=== PATIENT | male | born 1935 ===

== ENCOUNTER 2020-01-01 10:36 | Inpatient (IN) | payer OTHER ==
[~2020-01-01] VITALS: Ht 170.2 cm; Wt 113.4 kg
[2020-01-11] MEDS ORDERED: INTESTINEX680 M1 PO (09:28)
[2020-01-11] MEDS ORDERED: LORATADINE10 MG PO (09:28)
[2020-01-11] MEDS ORDERED: TRAMADOL HCL50 MG PO (09:28)
[2020-01-11] MEDS ORDERED: LEVOTHYROXINE25 MCG PO (09:28)
[2020-01-11] MEDS ORDERED: SIMVASTATIN20 MG PO (09:28)
[2020-01-11] MEDS ORDERED: FUROSEMIDE40 MG PO (09:28)
[2020-01-11] MEDS ORDERED: BUSPIRONE HCL5 MG PO (09:28)
[2020-01-11] MEDS ORDERED: Neurin-Sl Tablet Sl SL (09:28)
[2020-01-11] MEDS ORDERED: TAMS0.4C PO (09:28)
[2020-01-11] MEDS ORDERED: PYRIDOXINE HCL100 MG PO (09:28)
[2020-01-11] MEDS ORDERED: RESTORIL15 MG PO (09:28)
[2020-01-11] MEDS ORDERED: ATACAND16 MG PO (09:28)
[2020-01-11] MEDS ORDERED: FLONASE16 GM NASAL (09:28)
[2020-01-11] MEDS ORDERED: ISOSORBIDE DINI20 MG PO (09:28)
[2020-01-11] MEDS ORDERED: FAMOTIDINE20 MG PO (09:28)
== END 2020-01-11 21:41 | disposition home or self-care (01) | DRG 394 ==
LOC: ER 10:36 → SURG 19:46 → SEC-K 19:46 → SURG 01-02 00:17 → SURH 01-07 13:43
PROVIDERS: ADMIT Colon & Rectal Surgery; ATTEND Colon & Rectal Surgery
PROC: 4A033R1 Measurement of Arterial Saturation, Peripheral, Percutaneous Approach (ICD-10-PCS; 2020-01-01)
PROC: 3E0F7SF Introduction of Other Gas into Respiratory Tract, Via Natural or Artificial Opening (ICD-10-PCS; 2020-01-04)
PROC: 8E0ZXY6 Isolation (ICD-10-PCS; principal; 2020-01-08)
PROC: BW20YZZ Computerized Tomography (CT Scan) of Abdomen using Other Contrast (ICD-10-PCS; 2020-01-09)
DX: K61.1 Rectal abscess (principal); B18.1 Chronic viral hepatitis B without delta-agent; I13.0 Hypertensive heart and chronic kidney disease with heart failure and stage 1 through stage 4 chronic kidney disease, or unspecified chronic kidney disease; I50.9 Heart failure, unspecified; J61 Pneumoconiosis due to asbestos and other mineral fibers; E03.9 Hypothyroidism, unspecified; I50.89 Other heart failure; N18.9 Chronic kidney disease, unspecified; Z79.01 Long term (current) use of anticoagulants; J44.9 Chronic obstructive pulmonary disease, unspecified; B96.20 Unspecified Escherichia coli [E. coli] as the cause of diseases classified elsewhere; Z74.01 Bed confinement status

== ENCOUNTER 2020-01-13 15:55 | Emergency (ER) | payer OTHER ==
[~2020-01-13] VITALS: Ht 175.3 cm; Wt 99.8 kg
[~2020-01-13 15:55] MED LIST: ATACAND16 MG PO; BUSPIRONE HCL5 MG PO; FAMOTIDINE20 MG PO; FLONASE16 GM NASAL; FUROSEMIDE40 MG PO; INTESTINEX680 M1 PO; ISOSORBIDE DINI20 MG PO; LEVOTHYROXINE25 MCG PO; LORATADINE10 MG PO; Neurin-Sl Tablet Sl SL; PYRIDOXINE HCL100 MG PO; RESTORIL15 MG PO; SIMVASTATIN20 MG PO; TAMS0.4C PO; TRAMADOL HCL50 MG PO
== END 2020-01-15 13:45 | disposition home or self-care (01) ==
LOC: ER 15:55
DX: U07.1 COVID-19 (principal); K61.39 Other ischiorectal abscess; B18.1 Chronic viral hepatitis B without delta-agent; I13.0 Hypertensive heart and chronic kidney disease with heart failure and stage 1 through stage 4 chronic kidney disease, or unspecified chronic kidney disease; I50.9 Heart failure, unspecified; N18.9 Chronic kidney disease, unspecified; J61 Pneumoconiosis due to asbestos and other mineral fibers; E03.9 Hypothyroidism, unspecified; E87.6 Hypokalemia; R06.02 Shortness of breath; J43.8 Other emphysema; G47.33 Obstructive sleep apnea (adult) (pediatric); K75.89 Other specified inflammatory liver diseases; K62.89 Other specified diseases of anus and rectum; J84.10 Pulmonary fibrosis, unspecified; N40.0 Benign prostatic hyperplasia without lower urinary tract symptoms; Z72.0 Tobacco use; Z79.4 Long term (current) use of insulin

== ENCOUNTER 2020-01-26 00:37 | Inpatient (IN) | payer OTHER ==
[~2020-01-26] VITALS: Ht 170.2 cm; Wt 56.7 kg
--- NOTE | 2020-01-26 01:15 | NUR ---
SE RECIBE MASCULINO ALERTA Y DESORIENTADO POR DELVIN ESFERAS, EN AMBULANCIA. FAMILIAR REFIERE QUE PACIENTE PRESENTA ABSESOS EN AREA ANAL CON DESCARGAS DE ESCRETA. ADEMAS REFEIRE QUE PRESENTA DIFICULTAD RESPIRATORIA Y DESORIENTACION. REFIERE QUE PACIENTE PRESENTA COVID POSITIVO, LO QUE SE COMPRUEBA EN FATIMAH BUSQUEDA DE LABORATORIOS DEL PACIENTE EN RECORD. SCHWARTZ PATENTE FABIANONANDO ORINA COLOR AMARILLO INTENSO. SE REALIZA EKG. SE PRESENTA A DR. DOMÍNGUEZ.
--- NOTE | 2020-01-26 01:21 | NUR ---
SE RECIBE PTE MASCULINO EN AMBULANCIA [facility],SE COLOCA EN CAMA #3 ICU ER,SE CONECTA A MONITOR CAEDIACO KO Y OXIMETRIA CONTINUA,SE CANALIZA Y COLOCAN 2 H/L PATENTES EN PERIFERAL IZQUIERDA,SE HOLLIE MUESTRAS Y SE ENVIAN A LABOARTORIO,SE NOTIFICA A TERAPIA RESPIRATORIA SOBRE ABG LO CUAL SE REALIZA,SE MANTIENE PTE CON V/M 35%,LO CUAL CAMBIA A 50%,MARITZA LLEGA CON SCHWARTZ,.SE REALIZAN S/V,SE OBSERVA A PTE CON ABDOMEN DISTENDIDO Y WILLIAM,PTE DESORIENTADO Y SE OBSERVAN MULTIPLES MOVIIENTOS INVOLUNTARIOS,PTE CONTESTA AL SER LLAMADO POR BOLES NOMBRE,SE NOTIFICA PTE SE OBSERVA LENGUA RETRAIDA,SE NOTIFICA Y ES REALIZADO CXR PORTABLE,SE MANTINE A PTE EN OBSERVACION POR CAMBIOS.
--- NOTE | 2020-01-26 02:27 | NUR ---
POR ORDEN DE YA QUE FAMILIAR INFORMA PTE ES POSITIVO A COVID 19,MARITZA ORDENA QUE SEA COLOCADO EN SEC K K-2,Y SE ENTRGA A CARL VERONICA.
--- NOTE | 2020-01-26 07:37 | NUR ---
SE RECIBE PTE MASCULINO DE 84 YRS ALERTA CONCIENTE Y TRANQUILO EN CAMA EN LA UNIDAD DE SEC-K COVID. PTE CON IVF PATENTE Y ANA DE EDEMA. SE LE ROCCO S/V LA CUAL SE DOCUEMTA.SE OBSERVA CON .9NSS A 60 ML HR CON CANULA NASAL A PTE AL MOMETO ANA DE DOLOR .SE MANTIENE JOANA ESPERA DE MEDICO CONSULTOR. SE OBSERVA POR CAMBIOS EN BOLES CONDICION.
[2020-01-28] MEDS ORDERED: ALPRAZOLAM1 MG (07:50)
[2020-01-28] MEDS ORDERED: ABANEU-SL TABL1 EACH (07:52)
[2020-02-07] MEDS ORDERED: FAMOTIDINE20 MG PO (13:11)
[2020-02-07] MEDS ORDERED: PYRIDOXINE HCL100 MG PO (13:11)
[2020-02-07] MEDS ORDERED: RESTORIL15 MG PO (13:11)
[2020-02-07] MEDS ORDERED: SIMVASTATIN20 MG PO (13:11)
[2020-02-07] MEDS ORDERED: ATACAND16 MG PO (13:11)
[2020-02-07] MEDS ORDERED: MELATONIN5 M2 PO (13:11)
[2020-02-07] MEDS ORDERED: VITAMIN C500 M1 PO (13:11)
[2020-02-07] MEDS ORDERED: ABANEU-SL TABL1 EACH SL (13:11)
[2020-02-07] MEDS ORDERED: FUROSEMIDE40 MG PO (13:11)
[2020-02-07] MEDS ORDERED: ZINC SULFATE220 M2 PO (13:11)
[2020-02-07] MEDS ORDERED: GABAPENTIN300 MG PO (13:11)
[2020-02-07] MEDS ORDERED: LORATADINE10 MG PO (13:11)
[2020-02-07] MEDS ORDERED: ISOSORBIDE DINI20 MG PO (13:11)
[2020-02-07] MEDS ORDERED: LEVOTHYROXINE25 MCG PO (13:11)
[2020-02-07] MEDS ORDERED: DIPHENHIST25 MG PO (13:11)
[2020-02-07] MEDS ORDERED: HALOPERIDOL1 MG PO (13:11)
[2020-02-07] MEDS ORDERED: INTESTINEX680 M1 PO (13:11)
[2020-02-07] MEDS ORDERED: TAMS0.4C PO (13:11)
== END 2020-02-07 20:56 | disposition home or self-care (01) | DRG 178 ==
LOC: ER 00:37 → SEC-K 09:47 → MEDJ 01-28 16:29
PROVIDERS: ADMIT Internal Medicine Geriatric Medicine; ATTEND Internal Medicine Geriatric Medicine
PROC: 8E0ZXY6 Isolation (ICD-10-PCS; principal; 2020-01-26)
PROC: 4A033R1 Measurement of Arterial Saturation, Peripheral, Percutaneous Approach (ICD-10-PCS; 2020-01-26)
PROC: 3E0F7GC Introduction of Other Therapeutic Substance into Respiratory Tract, Via Natural or Artificial Opening (ICD-10-PCS; 2020-01-26)
PROC: 4A12X4Z Monitoring of Cardiac Electrical Activity, External Approach (ICD-10-PCS; 2020-01-29)
PROC: BB24ZZZ Computerized Tomography (CT Scan) of Bilateral Lungs (ICD-10-PCS; 2020-01-31)
DX: U07.1 COVID-19 (principal); J44.1 Chronic obstructive pulmonary disease with (acute) exacerbation; I13.0 Hypertensive heart and chronic kidney disease with heart failure and stage 1 through stage 4 chronic kidney disease, or unspecified chronic kidney disease; J61 Pneumoconiosis due to asbestos and other mineral fibers; G47.33 Obstructive sleep apnea (adult) (pediatric); K61.39 Other ischiorectal abscess; B96.29 Other Escherichia coli [E. coli] as the cause of diseases classified elsewhere; B95.2 Enterococcus as the cause of diseases classified elsewhere; B96.89 Other specified bacterial agents as the cause of diseases classified elsewhere; N18.1 Chronic kidney disease, stage 1; I50.9 Heart failure, unspecified; Z74.01 Bed confinement status